=== PATIENT | male | born 1960 | race African-American/Black ===

== ENCOUNTER 2024-05-22 13:32 | Emergency (ER) | payer MEDICARE, MEDICAID, SELFPAY ==
[2024-05-22 13:53] VITALS: BP 138/46; PULSE 78; RESP 20; TEMP 37; O2SAT 98
--- NOTE | 2024-05-22 13:55 | ED.GENADULT ---
HPI - General Adult General Chief complaint: Urogenital-Male Stated complaint: Blood In Urine Time Seen by Provider: 05/22/24 13:56 Source: patient, RN notes reviewed and old records reviewed Mode of arrival: ambulatory Limitations: no limitations History of Present Illness HPI narrative: 64-year-old male presents to the [facility] with concerns of blood in his urine x2 days. Patient is wheelchair bound, has a left leg amputation History of diabetes Patient is not historian States every time he urinates the blood is getting more and more. States that it rucker sometimes when he finishes urination but no pain when he urinates Onset (ago): day(s) (2) Treatments prior to arrival: none Related Data Home Medications Medication Instructions Recorded Confirmed carvedilol 25 mg tablet mg 05/22/24 chlorthalidone 25 mg tablet mg 05/22/24 dulaglutide 1.5 mg/0.5 mL mg subcut 05/22/24 subcutaneous pen injector (Trulicity) ferrous sulfate 325 mg (65 mg mg 05/22/24 iron) tablet (FeroSul) fluticasone fur. 200 mcg-umeclid inhalation 05/22/24 62.5 mcg-vilant 25 mcg inhalat.powder (Trelegy Ellipta) gabapentin 600 mg tablet mg 05/22/24 insulin glargine U-300 conc 300 unit subcut 05/22/24 unit/mL (3 mL) subcutaneous pen (Toujeo Max U-300 SoloStar) metformin 500 mg tablet,extended mg PO 05/22/24 release 24 hr mometasone 50 mcg/actuation nasal intranasal 05/22/24 spray nystatin 100,000 unit/gram topical topical 05/22/24 cream pen needle, diabetic 32 gauge x 05/22/24 05/22/2409/30 (Novofine 32) tramadol 50 mg tablet mg 05/22/24 triamcinolone acetonide 0.1 % topical 05/22/24 topical ointment Allergies Allergy/AdvReac Type Severity Reaction Status Date / Time No Known Allergies Allergy Verified 05/22/24 13:39 Review of Systems Review of Systems: All systems reviewed & are unremarkable except as noted in HPI and below Constitutional: Constitutional: Reports no additional constitutional complaints Eyes: Eyes: Reports no additional eye complaints ENT: Reports system reviewed and no additional complaints, except as documented Cardiovascular: Cardiovascular: Reports no additional cardiovascular complaints, Denies chest pain and Denies dyspnea Respiratory: Respiratory: Reports no additional respiratory complaints, Denies chest congestion, Denies cough and Denies dyspnea Gastrointestinal: Gastrointestinal: Reports no additional gastrointestinal complaints, Denies abdominal pain, Denies nausea and Denies vomiting Genitourinary: Genitourinary: Reports as per HPI and Reports hematuria Musculoskeletal: Musculoskeletal: Reports no additional musculoskeletal complaints Integumentary/Breasts: Skin/Breast: Reports system reviewed and no additional complaints, except as docu Neurologic: Reports system reviewed and no additional complaints, except as documented Psychiatric: Psychiatric: Reports no additional psychiatric complaints Allergic/Immunologic: Allergic/Immunologic: Reports no additional allergic/immunologic complaints PMFSH Past Medical History Medical History (Updated 05/23/24 @ 11:47 by Cristel Abdi APRN) Diabetes History of high blood pressure Morbid obesity Surgical History Surgical History (Updated 05/23/24 @ 11:47 by Cristel Abdi APRN) Hx of leg amputation Left Comments At the time of my signature, I reviewed and agree with the nursing past medical, surgical, social, and family history. There is no relevant family history pertinent to the patient complaint. Exam Const: General: cooperative, healthy appearing, comfortable, no acute distress, well developed, alert and well nourished Nutritional Appearance: well nourished and obese Orientation/consciousness: patient oriented x3 Limitations: no limitations HENMT: Head: normal to inspection Ears: hearing grossly normal bilaterally and external ears normal Face/Nose/Sinus: Normal external nose present, Norm
[2024-05-22 14:38] LABS: EDUAAPPEAR Cloudy; EDUABILI 1+; EDUABLOOD 3+; EDUACOLOR1 Red; EDUAGLUCOSE Negative; EDUAKETONE Negative; EDUALEUKO 1+; EDUANITRATE Positive; EDUAPROTEIN 3+
== END 2024-05-22 14:45 | disposition left against medical advice (07) ==
PROVIDERS: Emergency Provider Nurse Practitioner
DX: R31.0 Gross hematuria (principal); N39.0 Urinary tract infection, site not specified; E11.9 Type 2 diabetes mellitus without complications; I10 Essential (primary) hypertension; E66.01 Morbid (severe) obesity due to excess calories; Z68.45 Body mass index [BMI] 70 or greater, adult
CPT/HCPCS: 81003; 87077; 87086; 87088; 87186; 99213; G0463